=== PATIENT | female | born 1995 | race Hispanic/Latino ===

== ENCOUNTER 2017-08-29 13:03 | Outpatient (CLI) | payer MEDICAID ==
[2017-08-29 13:49] VITALS: BP 96/65
[2017-08-29] MEDS ORDERED: LACTATED RINGERS 500 ML IV ONE (16:50)
--- NOTE | 2017-08-29 18:14 | Ultrasound Report ---
FINAL REPORT PROCEDURE: US OB LIMITED TECHNIQUE: Real-time limited sonographic examination was performed for evaluation of placenta. Limited evaluation.). CPT 08482 HISTORY: Vaginal bleeding. COMPARISON: No prior studies are available for comparison. FINDINGS: MATERNAL LMP: 02/22/2017. Clinical age: 26 weeks 6 days. EDC: 11/29/2017. Uterus: Within normal limits, limited. Cervix length: Limited evaluation. FETUS IUP: Single living intrauterine . Position: Cephalic. Placental position: Anterior, without previa . Amniotic fluid volume: Limited evaluation. Heart rate and rhythm: 138 BPM, Regular . IMPRESSION: 1. Gar viable intrauterine , limited evaluation. Clinically 26 weeks 6 days with EDC of 11/29/2017. 2. A Port nterior placenta without sonographic evidence of previa or abruption.
== END 2017-08-29 18:25 | disposition home or self-care (01) ==
LOC: TRG 13:03
PROVIDERS: ATTEND Obstetrics & Gynecology
DX: O47.02 False labor before 37 completed weeks of gestation, second trimester (principal); Z3A.26 26 weeks gestation of pregnancy
CPT/HCPCS: 76815

== ENCOUNTER 2017-11-13 17:13 | Inpatient (IN) | payer BC, MEDICAID ==
[2017-11-13 21:29] LABS: Hematocrit 26.6 % (30.3-42.9); Hemoglobin 9.2 gm/dl (10.1-14.3); Mean Corpuscular HGB Conc 34 % (30-34); Mean Corpuscular Hemoglobin 29 pg (28-32); Mean Corpuscular Volume 84 fl (79-97); Platelet Count 181 K/mm3 (140-440); Red Blood Count 3.16 M/mm3 (3.65-5.03); Red Cell Distribution Width 14.4 % (13.2-15.2)
[2017-11-13] MEDS: LACTATED RINGERS 1,000 ML IV SCH (21:34)
[2017-11-14] MEDS ORDERED: AMBIEN PO PRN (00:02)
[2017-11-14] MEDS: LACTATED RINGERS 1,000 ML IV SCH ×2 (08:36→09:47)
[2017-11-14] MEDS ORDERED: POLYCILLIN/NS 2 GM/100 ML 2 GM/100 ML BAG IV NR (09:00)
[2017-11-14] MEDS ORDERED: PITOCin/NS 30 UNIT/500ML 30 UNITS/500 ML BAG IV SCH (09:00)
--- NOTE | 2017-11-14 09:48 | Anesthesia Consultation ---
Anesthesia Consult and Med Hx - Airway Anesthetic Teeth Evaluation: Good ROM Head & Neck: Adequate Mental/Hyoid Distance: Adequate Mallampati Class: Class II Intubation Access Assessment: Probably Good - Pulmonary Exam CTA: Yes - Cardiac Exam Cardiac Exam: RRR - Pre-Operative Health Status ASA Pre-Surgery Classification: ASA2, Emergency Proposed Anesthetic Plan: Epidural, Spinal - Pulmonary Hx Smoking: Yes Hx Asthma: No COPD: No Hx Pneumonia: No - Cardiovascular System Hx Hypertension: No - Central Nervous System Hx Seizures: No Hx Psychiatric Problems: No - Endocrine Hx Renal Disease: No Hx End Stage Renal Disease: No Hx Hypothyroidism: No Hx Hyperthyroidism: No - Hematic Hx Anemia: No Hx Sickle Cell Disease: No - Other Systems Hx Alcohol Use: No
[2017-11-14] MEDS ORDERED: ePHEDrine SULFATE ONE (09:51)
[2017-11-14] MEDS ORDERED: NARCAN 2 MG/2 ML IV PRN (10:00)
[2017-11-14] MEDS ORDERED: ePHEDrine SULFATE IV PRN (10:00)
[2017-11-14] MEDS ORDERED: fentaNYL-BUPIV 2 MCG/ML-0.125% 200 MCG/100 ML BAG EPIDURAL SCH (10:00)
[2017-11-14] MEDS ORDERED: XYLOCAINE MPF 2% ONE ×2 (11:22→14:09)
--- NOTE | 2017-11-14 11:43 | History and Physical Report ---
History of Present Illness Date of examination: 11/14/17 Date of admission: 11/13/17 20:31 Chief complaint: I'm in pain History of present illness: Patient is a 22 year old who presented to the office for a routine ob check at 36 weeks and was found to be 4.5 cm dilated. She was sent to the hospital for monitoring and was found to be 5-6 cm dilated. She progressed to 7cm overnight without any augmentation. Her course has been uncomplicated. Her last ended in a term demise due to a cord accident. Past History Past Medical History: no pertinent history Past Surgical History: no surgical history Social history: - Obstetrical History Expected Date of Delivery: 12/11/17 Actual Gestation: 36 Week(s) 1 Day(s) : 2 Para: 0 Number of Living Children: 0 Medications and Allergies Allergies Allergy/AdvReac Type Severity Reaction Status Date / Time acetaminophen Allergy Itching Verified 09/13/16 15:14 [From Tylenol-Codeine #3] codeine phosphate Allergy Itching Verified 09/13/16 15:14 [From Tylenol-Codeine #3] latex Allergy Itching Verified 09/13/16 15:14 Home Medications Medication Instructions Recorded Confirmed Last Taken Type Ferrous Sulfate [Feosol 325 MG tab] 325 mg PO BID #60 tablet 11/06/16 11/14/17 Unknown Rx Active Meds: Active Medications Ephedrine Sulfate (Ephedrine Sulfate) 10 mg IV Q2M PRN PRN Reason: Hypotension Last Admin: 11/14/17 09:51 Dose: 10 mg Lactated Ringer's (Lactated Ringers) 1,000 mls @ 125 mls/hr IV DIRECT GINNY Last Admin: 11/14/17 09:47 Dose: 125 mls/hr Ampicillin Sodium (Polycillin/Ns 1 Gm/50 Ml) 1 gm in 50 mls @ 100 mls/hr IV Q4H GINNY PRN Reason: Protocol Oxytocin/Sodium Chloride (Pitocin/Ns 30 Unit/500ml) 30 units in 500 mls @ 2 mls /hr IV TITR GINNY PRN Reason: Protocol Last Admin: 11/14/17 10:10 Dose: 2 ml/hr, 2 mls/hr Fentanyl/Bupivacaine/Sodium Chlor (Fentanyl-Bupiv 2 Mcg/Ml-0.125%) 200 mcg in 100 mls @ 12 mls/hr EPIDURAL TITR GINNY PRN Reason: Protocol Last Admin: 11/14/17 10:21 Dose: 12 mls/hr Naloxone HCl (Narcan 2 Mg/2 Ml) 0.2 mg IV Q5M PRN PRN Reason: Respiratory sedation Zolpidem Tartrate (Ambien) 10 mg PO QHS PRN PRN Reason: Insomnia Last Admin: 11/14/17 00:08 Dose: 10 mg Review of Systems All systems: negative Genitourinary: pelvic pain, contractions - Vital Signs Vital signs: Vital Signs Pulse BP 100 H 111/71 11/13/17 17:50 11/13/17 17:50 Temp Pulse Resp BP Pulse Ox 97.0 F L 89 20 118/73 98 11/14/17 11:18 11/14/17 11:38 11/14/17 11:18 11/14/17 11:38 11/14/17 11:38 - Physical Exam Breasts: Positive: deferred Cardiovascular: Regular rate, Normal S1, Normal S2 Lungs: Positive: Clear to auscultation, Normal air movement Abdomen: Positive: normal appearance, soft, normal bowel sounds Vagina: Positive: normal moisture Uterus: Positive: normal size - Obstetrical FHR: auscultation normal Cervical Dilatation: 5 Cervical Effacement Percentage: 80 station: +1 Uterine Contraction Pattern: Irregular Uterine Contraction Intensity: Moderate Results Result Diagrams: 11/13/17 21:13 Abnormal lab results 11/13/17 Range/Units 21:13 RBC 3.16 L (3.65-5.03) M/mm3 Hgb 9.2 L (10.1-14.3) gm/dl Hct 26.6 L (30.3-42.9) % All other labs normal. Assessment and Plan IUP at 36 weeks in labor. Admit for labor management. Treat for GBS unknown. Anticipate .
[2017-11-14] MEDS ORDERED: SUBLIMAZE ONE (11:53)
[2017-11-14] MEDS ORDERED: SUBLIMAZE IV ONE (12:36)
[2017-11-14] MEDS ORDERED: POLYCILLIN/NS 1 GM/50 ML 1 GM/50 ML BAG IV SCH (14:00)
[2017-11-14] MEDS ORDERED: PITOCin/NS 20 UNIT/1000ML DRIP 20,000 MILLIUNITS/1,000 ML BAG IV ONE ×2 (14:18→16:50)
[2017-11-14] MEDS ORDERED: METHERGINE IM ONE ×2 (14:32→14:37)
--- NOTE | 2017-11-14 14:41 | Procedure Note ---
OB Delivery Note - Delivery Date of Delivery: 11/14/17 Surgeon: AYAN SONG - Vaginal Delivery presentation: vertex Delivery position: OA Intrapartum events: labor-<37 weeks Delivery induction: none Delivery augmentation: rupture of membranes Delivery monitor: external FHT, external uterine Route of delivery: Delivery placenta: spontaneous Delivery cord: 3 umbilical vessels Episiotomy: none Delivery laceration: none Delivery repair: chromic Anesthesia: epidural Delivery comments: Viable male delivered over intact perineum with no nuchal cord. Placenta delivered spontatneously and intact. placed on maternal abdomen. Cord clamped and cut when done pulsing. NO lacerations. patient tolerated procedure well. Excellent hemostasis. - A at 1 minute: 8 at 5 minutes: 8 Gender: Male (6 pounds 3 ounces)
[2017-11-14] MEDS ORDERED: BENADRYL PO PRN (18:36)
[2017-11-14] MEDS ORDERED: TYLENOL PO PRN (18:36)
[2017-11-14] MEDS ORDERED: LANSINOH TP PRN (18:36)
[2017-11-14] MEDS ORDERED: TUCKS PAD TP PRN (18:36)
[2017-11-14] MEDS ORDERED: ZOFRAN IV PRN (18:36)
[2017-11-14] MEDS ORDERED: DULCOLAX PR PRN (18:36)
[2017-11-14] MEDS ORDERED: MILK OF MAGNESIA PO PRN (18:36)
[2017-11-14] MEDS ORDERED: PHENERGAN PO PRN (18:36)
[2017-11-14] MEDS ORDERED: SODIUM CHLORIDE FLUSH SYRINGE 10 ML IV NR (18:36)
[2017-11-14] MEDS ORDERED: PHENERGAN PR PRN (18:36)
[2017-11-14] MEDS: COLACE PO SCH (23:15)
[2017-11-14] MEDS: MOTRIN PO SCH (23:15)
[2017-11-15 04:48] LABS: Hematocrit 25.2 % (30.3-42.9); Hemoglobin 8.2 gm/dl (10.1-14.3)
[2017-11-15] MEDS: MOTRIN PO SCH ×2 (05:07→17:05)
[2017-11-15] MEDS ORDERED: BOOSTRIX IM ONE (06:00)
[2017-11-15] MEDS ORDERED: PRENATAL VITAMIN PO SCH (10:00)
--- NOTE | 2017-11-15 17:50 | Progress Note ---
Assessment and Plan A: PPD#1 s/p at term P: Routine care. Anticipate discharge tomorrow. Subjective - Subjective Date of service: 11/15/17 Principal diagnosis: s/p at term Interval history: No overnight events. Patient reports: appetite normal, voiding normally, pain well controlled, flatus , ambulating normally, no bowel movement, no nauseated [place]: doing well Objective - Vital Signs Latest vital signs: Vital Signs Temp Pulse Resp BP BP Pulse Ox 11/15/17 17:05 20 11/15/17 12:44 98.3 F 93 H 18 99/63 98 11/15/17 09:20 97.4 F L 67 18 101/65 98 11/15/17 09:05 97.4 F L 79 20 101/65 11/15/17 06:07 18 11/15/17 05:07 18 11/15/17 00:45 98.4 F 85 20 110/64 99 11/15/17 00:15 18 11/14/17 23:15 18 11/14/17 21:14 95 H 106/60 98 11/14/17 20:40 98.7 F 95 H 20 106/60 98 Intake and Output 11/15/17 11/15/17 11/15/17 06:59 14:59 22:59 Intake Total 480 240 Balance 480 240 Intake: Oral 240 240 Intake, Free Water 240 Other: Total, Intake Amount 240 240 # Voids Void 1 1 # Bowel Movements 1 - Exam Breasts: Present: deferred Cardiovascular: Present: Regular rate Lungs: Present: Clear to auscultation Abdomen: Present: soft (obese ) Uterus: Present: fundal height at umbilicus Extremities: Present: normal - Labs Labs: Abnormal lab results 11/15/17 Range/Units 04:23 Hgb 8.2 L (10.1-14.3) gm/dl Hct 25.2 L (30.3-42.9) %
[2017-11-15] MEDS: COLACE PO SCH (18:46)
[2017-11-16] MEDS: MOTRIN PO SCH ×3 (00:38→23:59)
[2017-11-16] MEDS: NORCO 5/325 PO PRN ×3 (07:40→23:59)
[2017-11-16] MEDS ORDERED: MILK OF MAGNESIA PO PRN (10:57)
--- NOTE | 2017-11-16 10:57 | Progress Note ---
Assessment and Plan A: PPD#2 s/p at term P: Routine care Milk of Magnesia Discharge home today Subjective - Subjective Date of service: 11/16/17 Principal diagnosis: s/p at term Interval history: Pt c/o constipation. Patient reports: appetite normal, voiding normally, pain well controlled, ambulating normally, no nauseated [place]: doing well Objective - Vital Signs Latest vital signs: Vital Signs Temp Pulse Resp BP BP Pulse Ox 11/16/17 07:40 20 11/16/17 02:15 98.2 F 73 20 102/68 11/15/17 17:50 98.2 F 79 20 104/70 11/15/17 17:05 20 11/15/17 12:44 98.3 F 93 H 18 99/63 98 Intake and Output 11/15/17 11/16/17 11/16/17 22:59 06:59 14:59 Intake Total 240 240 240 Balance 240 240 240 Intake: Oral 240 240 240 Other: Total, Intake Amount 240 240 240 # Voids Void 1 1 1 - Exam Breasts: Present: deferred Cardiovascular: Present: Regular rate Lungs: Present: Clear to auscultation Abdomen: Present: soft (obese) Uterus: Present: fundal height at umbilicus Extremities: Present: normal
--- NOTE | 2017-11-16 10:59 | Discharge Summary ---
Providers - Providers Date of Admission: 11/13/17 20:31 Date of discharge: 11/16/17 Attending physician: AYAN SONG Primary care physician: AYAN SONG Hospitalization Reason for admission: labor Delivery: Procedure details: Please see delivery note. Episiotomy: none Laceration: none Other procedures: none complications: none Discharge diagnosis: delivery baby: male Hospital course: Pt was admitted in labor and went on to undergo which she tolerated well. Her course was uncomplicated and she met discharge criteria on PPD#2. She will follow up in office in [address] Muna Song. Condition at discharge: Stable Disposition: DC-01 TO HOME OR SELFCARE - Discharge Diagnoses (1) Obesity Status: Acute Qualifiers: Body mass index: BMI 36.0-36.9 (2) labor with delivery Status: Acute (3) Anemia affecting Status: Acute Qualifiers: Trimester: third trimester Qualified Code(s): O99.013 - Anemia complicating , third trimester Plan - Discharge Medications Prescriptions: Ferrous Sulfate [Feosol 325 MG tab] 325 mg PO BID #60 tablet Ibuprofen [Motrin] 800 mg PO Q8HR PRN #60 tablet PRN Reason: Pain - Provider Discharge Summary Activity: routine, no sex for 6 weeks, no heavy lifting 4 weeks, no strenuous exercise Diet: routine Instructions: routine Additional instructions: [] Smoking cessation referral if applicable(refer to patient education folder for contact #) [] Refer to [facility] Booklet Call your doctor immediately for: * Fever > 100.5 * Heavy vaginal bleeding ( >1 pad per hour) * Severe persistent headache * Shortness of breath * Reddened, hot, painful area to leg or breast * Drainage or odor from incision. * Keep incision clean and dry at all times and follow doctor's instructions regarding bathing/showering Please schedule your son's circumcision before he is one month old. - Follow up plan Follow up: AYAN SONG MD [Primary Care Provider] - 12/26/17 (please schedule your exam)
[2017-11-16] MEDS: COLACE PO SCH (23:59)
[2017-11-17] MEDS: COLACE PO SCH
[2017-11-17 00:43] VITALS: BP 107/74
== END 2017-11-16 23:59 | disposition home or self-care (01) | DRG 775 ==
LOC: TRG 17:13 → LD 20:31 → OBSVTOIN 20:31 → LD 11-14 06:28 → OB 11-14 17:32
PROVIDERS: ADMIT Obstetrics & Gynecology; ATTEND Obstetrics & Gynecology
PROC: 10E0XZZ Delivery of Products of Conception, External Approach (ICD-10-PCS; principal; 2017-11-14)
DX: O60.14X0 Preterm labor third trimester with preterm delivery third trimester, not applicable or unspecified (principal); O99.03 Anemia complicating the puerperium; D64.9 Anemia, unspecified; O99.214 Obesity complicating childbirth; E66.9 Obesity, unspecified; O99.334 Smoking (tobacco) complicating childbirth; F17.200 Nicotine dependence, unspecified, uncomplicated; Z3A.36 36 weeks gestation of pregnancy; Z37.0 Single live birth; Z68.36 Body mass index [BMI] 36.0-36.9, adult; Z88.5 Allergy status to narcotic agent; Z91.040 Latex allergy status; Z79.899 Other long term (current) drug therapy
CPT/HCPCS: 36415; 85014; 85018; 85027; 86592; 86850; 86870; 86900; 86901; 90471; 90715; 99211; G0463; J0290; J2210; J2590; J3010; J7120

== ENCOUNTER 2020-03-30 10:45 | Outpatient (CLI) | payer BC, MEDICAID ==
[2020-03-30 19:21] VITALS: BP 120/70
== END 2020-03-30 13:33 | disposition home or self-care (01) ==
LOC: LAB 10:45 → APU 13:05 → LAB 13:33
PROVIDERS: ATTEND Obstetrics & Gynecology
DX: O26.893 Other specified pregnancy related conditions, third trimester (principal); Z3A.28 28 weeks gestation of pregnancy; Z67.11 Type A blood, Rh negative
CPT/HCPCS: 86850; 86900; 86901; 96372; J2790

== ENCOUNTER 2020-06-07 19:54 | Outpatient (CLI) | payer MEDICAID ==
[2020-06-07 20:42] VITALS: BP 125/72
== END 2020-06-07 21:22 | disposition home or self-care (01) ==
LOC: TRG 19:54
PROVIDERS: ATTEND Obstetrics & Gynecology
DX: O47.1 False labor at or after 37 completed weeks of gestation (principal); Z3A.37 37 weeks gestation of pregnancy
CPT/HCPCS: 59025

== ENCOUNTER 2020-07-26 06:06 | Day surgery (SDC) | payer MEDICAID ==
[2020-07-26] MEDS ORDERED: LACTATED RINGERS 1,000 ML ONE (07:04)
--- NOTE | 2020-07-26 07:07 | Anesthesia Consultation ---
Anesthesia Consult and Med Hx Date of service: 07/26/20 - Airway Anesthetic Teeth Evaluation: Good ROM Head & Neck: Adequate Mental/Hyoid Distance: Adequate Mallampati Class: Class II Intubation Access Assessment: Good - Pulmonary Exam CTA: Yes - Cardiac Exam Cardiac Exam: RRR - Pre-Operative Health Status ASA Pre-Surgery Classification: ASA2 Proposed Anesthetic Plan: General - Pulmonary Hx Smoking: Yes Hx Asthma: No COPD: No Hx Pneumonia: No Hx Sleep Apnea: No - Cardiovascular System Hx Hypertension: No Hx Heart Attack/AMI: No Hx Internal Defibrillator: No Hx Heart Murmur: No - Central Nervous System Hx Seizures: No Hx Back Pain: Yes (LOWER) Hx Psychiatric Problems: No - Gastrointestinal Hx Gastroesophageal Reflux Disease: No - Endocrine Hx Renal Disease: No Hx End Stage Renal Disease: No Hx Cirrhosis: No Hx Liver Disease: No Hx Hypothyroidism: No Hx Hyperthyroidism: No - Hematic Hx Anemia: Yes (1ST ) Hx Sickle Cell Disease: No - Other Systems Hx Alcohol Use: No Hx Substance Use: No Hx Cancer: No
--- NOTE | 2020-07-26 07:08 | Anesthesia Day of Surgery ---
Anesthesia Day of Surgery - Day of Surgery Patient Examined: Yes Patient H&P Reviewed: Yes Patient is NPO: Yes
[2020-07-26] MEDS ORDERED: propofoL 200 MG/20 ML VIAL IV ONE (07:18)
[2020-07-26] MEDS ORDERED: HYDROmorphone 1 MG/1 ML INJ ONE (07:18)
[2020-07-26] MEDS ORDERED: LIDOCAINE MPF (2%) 20 MG/1 ML VIAL 5 ML ONE (07:19)
--- NOTE | 2020-07-26 07:27 | Short Stay Summary ---
Short Stay Documentation Date of service: 07/26/20 Narrative H&P: Pt is a 24 year old who presents for elective sterilization. She is approximately 4 weeks post spontaneous vaginal delivery - History Principal diagnosis: Undesired fertility H&P: obtained from office Past Medical History: No medical history Past Surgical History: No surgical history Social history: - Allergies and Medications Current Medications: Allergies latex Allergy (Verified 09/13/16 15:14) Itching Home Medications Medication Instructions Recorded Confirmed Last Taken Type No Known Home Medications [No 07/19/20 07/19/20 Unknown History Reported Home Medications] - Physical exam General appearance: no acute distress Lungs: Clear to auscultation, Normal air movement Breasts: deferred Heart: Regular rate, Normal S1, Normal S2 Gastrointestinal: normal, normoactive bowel sounds Female Genitourinary: deferred Rectal Exam: deferred Extremities: no ischemia, No edema Short Stay Discharge Plan Follow up with: PRIMARY CARE, [Primary Care Provider] - 7 Days
[2020-07-26] MEDS ORDERED: BUPIVACAINE/PF (0.25%) 2.5 MG/ML 30 ML VIAL INFILTRATI ONE ×2 (07:28→08:20)
[2020-07-26] MEDS ORDERED: MIDAZOLAM 2 MG/2 ML INJ ONE (07:45)
[2020-07-26] MEDS ORDERED: dexAMETHasone 20 MG/5 ML VIAL ONE (07:46)
[2020-07-26] MEDS ORDERED: ONDANSETRON 4 MG/2 ML INJ ONE (07:46)
[2020-07-26] MEDS ORDERED: ceFAZolin/Water 2 GM/20 ML 2 GM/20 ML SYRINGE IV NR (08:00)
[2020-07-26] MEDS ORDERED: LACTATED RINGERS 1,000 ML IV SCH (08:00)
[2020-07-26] MEDS ORDERED: ROCURONIUM 50 MG/5 ML INJ IV ONE (08:11)
[2020-07-26] MEDS ORDERED: SODIUM CHLORIDE 0.9% IRR 1,500 ML BOTTLE IR ONE (08:20)
[2020-07-26] MEDS ORDERED: NEOSTIGMINE 10MG/10 ML INJ MDV ONE (08:30)
[2020-07-26] MEDS ORDERED: GLYCOPYRROLATE 0.4 MG/2 ML INJ ONE (08:30)
[2020-07-26] MEDS ORDERED: KETOROLAC 30 MG/1 ML INJ ONE (08:34)
--- NOTE | 2020-07-26 09:07 | Short Stay Summary ---
Short Stay Documentation Date of service: 07/26/20 Narrative H&P: Pt is a 24 year old who presents for elective sterilization. Pt has been properly counseled about permanence of this procedure. Pt is S/P 4 weeks ago. - History H&P: obtained from office Past Medical History: No medical history Past Surgical History: No surgical history Social history: - Allergies and Medications Current Medications: Allergies latex Allergy (Verified 09/13/16 15:14) Itching Home Medications Medication Instructions Recorded Confirmed Last Taken Type No Known Home Medications [No 07/19/20 07/19/20 Unknown History Reported Home Medications] Active Medications Cefazolin Sodium (Ancef/Sterile Water 2 Gm/20 Ml) 2 gm in 20 mls @ 80 mls/hr IV PREOP NR; Protocol Stop: 07/26/20 23:00 Lactated Ringer's (Lactated Ringers) 1,000 mls @ 75 mls/hr IV DIRECT GINNY Last Admin: 07/26/20 07:25 Dose: 75 mls/hr Documented by: - Physical exam Breasts: deferred Heart: Regular rate, Normal S1, Normal S2 Gastrointestinal: normal, normoactive bowel sounds Female Genitourinary: deferred Rectal Exam: deferred Extremities: no ischemia, No edema - Brief post op/procedure progress note Date of procedure: 07/26/20 Pre-op diagnosis: Undesried fertility Post-op diagnosis: same Procedure: Bilateral laparoscopic salpingectomy Anesthesia: GETA Findings: normal uterus tubes and ovaries Surgeon: AYAN SONG Estimated blood loss: minimal Pathology: list (right and left fallopian tubes) Specimen disposition: to lab - Hospital course Hospital course: unremarkable - Disposition Condition at discharge: Good Disposition: DC-01 TO HOME OR SELFCARE Short Stay Discharge Plan Activity: advance as tolerated Weight Bearing Status: Weight Bear as Tolerated Diet: regular Follow up with: AYAN SONG MD [Staff Physician] - 14 Days Prescriptions: Ibuprofen [Motrin 800 MG tab] 800 mg PO Q8HR PRN #30 tablet PRN Reason: Pain, Mild (1-3) HYDROcodone/APAP 7.5-325 [[place] 7.5/325] 1 each PO Q6HR PRN #20 tablet PRN Reason: Pain
[2020-07-26 09:10] VITALS: BP 104/70
--- NOTE | 2020-07-26 09:12 | Operative Report ---
Operative Report Operative Report: Preoperative diagnosis: Undesired fertility Postoperative diagnosis: Same Procedure: Bilateral laparoscopic salpingectomy Surgeon: Amelia Pierson Anesthesia: General EBL: Minimal IV fluids: 1000 mL Urine output: 150 mL Findings: Normal uterus tubes and ovaries Specimens: Portion of right and left fallopian tube Complications: None The patient was properly identified as herself. She was then taken to the OR with IV running and in place. She was given general anesthesia without difficulty. She was placed in a dorsal lithotomy position. She was then prepped and draped in normal sterile fashion. Attention was turned to the patient's vagina. Her bladder was drained of clear urine with a red rubber c atheter. The speculum was then placed the patient's vagina. The cervix was visualized and grasped with tenaculum. The acorn cannula was then inserted. The surgeon's gloves were changed and attention turned to the patient's abdomen. A small incision was made in the patient's umbilicus incision a 5 mm trocar was placed. The laparoscope confirmed intra-abdominal placement. The abdomen was insufflated with CO2 gas to approximately 25 mmHg. Both fallopian tubes were identified. With direct visualization a second trocar was placed through an incision in the left lower quadrant. Both tubes were found and followed out to the fimbriated ends. Each tube was cauterized at the portion nearest the cornua, then cauterized across the broad ligament until the tube was completely detached. There was excellent hemostasis at the end of this portion of the procedure. Each tube was handed off for pathology. At this point the abdomen was deflated. All instruments were then removed from the abdomen. The incisions were then closed with 4-0 Monocryl. The incisions were also injected with quarter percent Marcaine. The patient tolerated the procedure well she was then awakened and taken recovery in stable condition. Sponge needle and instrument counts were correct 2.
[2020-07-26] MEDS ORDERED: HYDROcodone/ACETAMINOPHEN 7.5-325MG TAB ONE (09:21)
[2020-07-26] MEDS ORDERED: HYDROcodone/ACETAMINOPHEN 7.5-325MG TAB PO PRN (09:21)
--- NOTE | 2020-07-26 11:51 | Post Anesthesia Evaluation ---
- Post Anesthesia Evaluation Patient Participated: Yes Airway Patent: Yes Stable Respiratory Function: Yes Nausea/Vomiting: No Temp > 96.8F: Yes Pain Manageable: Yes Adequeate Hydration: Yes Anesthesia Complications: No Block Receding Appropriately: Not Applicable Patient on Ventilator: No
== END 2020-07-26 06:07 | disposition home or self-care (01) ==
LOC: OR 06:06
PROVIDERS: ATTEND Obstetrics & Gynecology
DX: Z30.2 Encounter for sterilization (principal); N83.8 Other noninflammatory disorders of ovary, fallopian tube and broad ligament; F17.210 Nicotine dependence, cigarettes, uncomplicated; E66.9 Obesity, unspecified; K21.9 Gastro-esophageal reflux disease without esophagitis; Z91.040 Latex allergy status; Z79.899 Other long term (current) drug therapy; Z68.34 Body mass index [BMI] 34.0-34.9, adult; Z87.440 Personal history of urinary (tract) infections; Z83.3 Family history of diabetes mellitus; Z80.8 Family history of malignant neoplasm of other organs or systems; Z98.890 Other specified postprocedural states; Z82.49 Family history of ischemic heart disease and other diseases of the circulatory system
CPT/HCPCS: 58670; 81025; 88302; J0690; J1100; J1170; J1885; J2250; J2405; J2704; J2710; J7120